=== PATIENT | male | born 1985 | race Caucasian/White ===

== ENCOUNTER 2019-03-07 12:08 | Day surgery (SDC) | payer SELFPAY ==
[~2019-03-07] VITALS: Ht 182.9 cm; Wt 120.5 kg
[~2019-03-07 12:08] MED LIST: ABIL15TA; AMBI5TAB; ASPI81TA83; CELE40TA; DEPA500T2; INVE6TAB3; LISI10TA4; NORV5TAB
[2019-03-07] MEDS ORDERED: LISI-538 PO (12:16)
[2019-03-07] MEDS ORDERED: PARO20TA3 PO (12:16)
[2019-03-07] MEDS ORDERED: NS 1,000 ML IV ONE (12:45)
[2019-03-07 12:56] LABS: BASO % 0.3 % (0.0-1.0); EOS # 0.1 10^3/uL (0.0-0.50); EOS % 0.6 % (0.0-3.0); HEMATOCRIT 48.9 % (42.0-52.0); HEMOGLOBIN 15.9 g/dl (13.5-17.5); LYMPH # 1.6 10^3/uL (1.5-4.5); LYMPH % 15.2 % (24.0-44.0); MEAN CORPUSCULAR HEMOGLOBIN 28.7 pg (27.0-33.0); MEAN CORPUSCULAR HGB CONC 32.5 g/dl (32.0-36.5); MEAN CORPUSCULAR VOLUME 88.3 fl (80.0-96.0); MONO # 0.8 10^3/uL (0.0-0.8); MONO % 7.3 % (0.0-5.0); NEUTROPHILS # 8.2 10^3/uL (1.8-7.7); PLATELET COUNT, AUTOMATED 250 10^3/uL (150-450); RED BLOOD COUNT 5.54 10^6/uL (4.30-6.10); WHITE BLOOD COUNT 10.8 10^3/uL (4.0-10.0)
[2019-03-07 13:28] LABS: ALBUMIN 4.2 GM/DL (3.2-5.2); ALT/SGPT 35 U/L (12-78); BILIRUBIN,DIRECT 0.2 MG/DL (0.0-0.2); BILIRUBIN,TOTAL 0.7 MG/DL (0.2-1.0); BLOOD UREA NITROGEN 16 MG/DL (7-18); CALCIUM LEVEL 9.7 MG/DL (8.5-10.1); CARBON DIOXIDE LEVEL 26 MEQ/L (21-32); CHLORIDE LEVEL 103 MEQ/L (98-107); CREATININE FOR GFR 1.04 MG/DL (0.70-1.30); GLOMERULAR FILTRATION RATE > 60.0 (>60); GLUCOSE, FASTING 92 MG/DL (70-100); LIPASE 152 U/L (73-393); POTASSIUM SERUM 4.2 MEQ/L (3.5-5.1); SODIUM LEVEL 137 MEQ/L (136-145); TOTAL PROTEIN 8.1 GM/DL (6.4-8.2)
[2019-03-07] MEDS ORDERED: ISOVUE-370 76% 100ML VIAL (Q9967) As Ordered ONE (14:11)
[2019-03-07] MEDS ORDERED: PIPERACILLIN/TAZOBACTAM SOD 3.375 GM in D5W MINI-BAG PLUS 50 ML IV ONE (15:15)
[2019-03-07] MEDS ORDERED: BUPIVACAINE/EPIN 0.25% 30 ML VIAL As Ordered ONE (16:10)
[2019-03-07] MEDS ORDERED: PROPOFOL 200 MG/20 ML VIAL As Ordered ONE (16:38)
[2019-03-07] MEDS ORDERED: LIDOCAINE 2% INJ 100 MG/5 ML SDV (FOR ANES.) As Ordered ONE (16:38)
[2019-03-07] MEDS ORDERED: ROCURONIUM BROMIDE 50 MG/5 ML VIAL As Ordered ONE ×3 (16:39→17:47)
[2019-03-07] MEDS ORDERED: ONDANSETRON 4MG/2ML VIAL (J2405) As Ordered ONE (16:43)
[2019-03-07] MEDS ORDERED: dexameTHASONE 4 MG/ML 1ML VIAL (J1100) As Ordered ONE ×2 (16:43→17:14)
[2019-03-07] MEDS ORDERED: MIDAZOLAM INJ 2 MG/2 ML VIAL (J2250) As Ordered ONE (16:52)
[2019-03-07] MEDS ORDERED: fentaNYL 250 MCG/5 ML INJECTION (J3010) As Ordered ONE (16:52)
--- NOTE | 2019-03-07 17:20 | REP ---
CT ABDOMEN AND PELVIS WITH IV CONTRAST: TECHNIQUE: Axial contrast enhanced images from the lung bases to the pubic symphysis using 100 mL Isovue 370 intravenous contrast material with multiplanar reformations. Visualized lung bases are clear. The liver demonstrates diffuse fatty infiltration. The gallbladder is mildly distended and grossly unremarkable, with no evidence of biliary dilatation. The spleen is normal in size with no instrinsic abnormality. The adrenal glands are normal. The pancreas demonstrates no mass. The kidneys are unremarkable with no hydronephrosis. There is no abdominal aortic aneurysm. There is no significant lymphadenopathy. There is no free air or free fluid. There is dilatation and thickening of the appendix with periappendiceal fat stranding consistent with appendicitis. There is no abscess. There is other area of bowel thickening. The urinary bladder is mildly distended and grossly unremarkable. There are small inguinal hernias containing fat. IMPRESSION: Findings consistent with appendicitis. No free air, abscess or free fluid. Electronically Signed by Vahid Fuentes MD 03/08/2019 07:53 A
[2019-03-07] MEDS ORDERED: ACETAMINOPHEN 1000MG 100ML IV BTL (OFIRMEV) (J0131 PER 10MG) As Ordered ONE (17:28)
[2019-03-07] MEDS ORDERED: SUGAMMADEX SODIUM 500 MG/5 ML VIAL (BRIDION) As Ordered ONE (17:50)
[2019-03-07] MEDS ORDERED: fentaNYL 100 MCG/2 ML INJECTION (J3010) As Ordered ONE ×3 (17:56→18:44)
[2019-03-07] MEDS ORDERED: KETOROLAC 60 MG/2 ML VIAL (J1885) As Ordered ONE (17:59)
[2019-03-07] MEDS ORDERED: NORCO, ANEXSIA 5/325MG TABLET (HYDROcodone/ACETAMINOPHEN) PO PRN ×2 (18:30)
[2019-03-07] MEDS ORDERED: MORPHINE 4 MG/ML 1ML VIAL/SYRINGE (J2270) IV PRN (18:30)
[2019-03-07] MEDS ORDERED: ONDANSETRON 4MG/2ML VIAL (J2405) IV PRN ×2 (18:30→19:00)
[2019-03-07] MEDS ORDERED: PERCOCET 5MG/325MG TAB As Ordered ONE (18:45)
[2019-03-07] MEDS: fentaNYL 100 MCG/2 ML INJECTION (J3010) IV PRN ×2 (18:47→18:52)
[2019-03-07] MEDS ORDERED: KETOROLAC 30 MG/ML VIAL (J1885) IV PRN (19:00)
[2019-03-07] MEDS ORDERED: LR 1,000 ML IV SCH (19:00)
[2019-03-07] MEDS ORDERED: PERCOCET 5MG/325MG TAB PO PRN (19:00)
[2019-03-07] MEDS ORDERED: METOCLOPRAMIDE INJ 10MG/2ML VIAL (J2765) IV PRN (19:00)
[2019-03-07 19:45] VITALS: BP 128/82
[2019-03-07] MEDS: PIPERACILLIN/TAZOBACTAM SOD 3.375 GM in D5W MINI-BAG PLUS 50 ML IV SCH (19:58)
[2019-03-07] MEDS: LR 1,000 ML IV SCH (19:58)
[2019-03-07 20:15] VITALS: BP 134/89
[2019-03-07 21:15] VITALS: BP 124/84
[2019-03-07 22:03] VITALS: O2SAT 95
[2019-03-07 22:15] VITALS: BP 125/75
[2019-03-07 23:00] VITALS: BP 123/82
[2019-03-08 00:15] VITALS: BP 120/78
[2019-03-08] MEDS: KETOROLAC 30 MG/ML VIAL (J1885) IV SCH ×2 (01:05→06:39)
[2019-03-08] MEDS: LR 1,000 ML IV SCH (02:12)
[2019-03-08] MEDS: PIPERACILLIN/TAZOBACTAM SOD 3.375 GM in D5W MINI-BAG PLUS 50 ML IV SCH ×2 (02:12→08:28)
[2019-03-08 04:15] VITALS: BP 117/78
[2019-03-08 08:00] VITALS: BP 154/84
--- NOTE | 2019-04-03 10:20 | RO ---
DATE OF PROCEDURE: 03/07/2019 PREOPERATIVE DIAGNOSIS: Acute appendicitis. POSTOPERATIVE DIAGNOSIS: Acute appendicitis. PROCEDURE: Laparoscopic appendectomy. SURGEON: Delano Rondon MD ASSISTANT [employer]OL[employer] PROFESSIONAL: ANESTHESIA: General endotracheal anesthesia. ESTIMATED BLOOD LOSS (EBL): Minimal. FLUIDS: Crystalloid. BRIEF PROCEDURE SUMMARY: The patient was brought to the operating room and was given general anesthesia. After adequate anesthesia and preoperative antibiotics were given, the patient was prepped and draped in the usual sterile fashion. Next, a supraumbilical incision was made with skin knife. Blunt dissection was carried down to fascia. Fascia was entered with a Veress needle, insufflated to 15 mm of pressure. A dilating 12 mm trocar was placed at this time and under direct visualization a suprapubic and left lower quadrant 5 mm trocar was placed. Next, the right lower quadrant was evaluated and indeed a very inflamed appendix was appreciated, and eventually after mobilization of the appendix off the pelvic sidewall and off the small bowel with some minimal blunt dissection as well as the Harmonic scalpel, the mesentery of the appendix was taken with Harmonic scalpel all the way to the base of the cecum. The cecal wall could be appreciated nicely at this point and the PEE stapler was used to transect the base of the appendix, placed in an EndoCatch bag and brought out through the umbilicus. The right lower quadrant was copiously irrigated until clear. All trocars removed under direct visualization and #0 Vicryl was used close the fascia at the umbilicus, #4-0 Vicryl was used close the incisions. Steri-Strips and a dry sterile dressing was applied. The patient was awakened, extubated, brought to the recovery room awake, alert, hemodynamically stable. Sponge and needle counts correct times two.
== END 2019-03-08 10:30 | disposition home or self-care (01) ==
LOC: M ED 12:08 → M SDC 12:09 → M MS5PR 19:35 → M SDC 03-08 10:30
PROVIDERS: ATTEND Surgery
DX: K35.80 Unspecified acute appendicitis (principal); I10 Essential (primary) hypertension; E66.9 Obesity, unspecified; F41.9 Anxiety disorder, unspecified; Z72.0 Tobacco use
CPT/HCPCS: 44970; 74177; 80048; 80076; 83690; 85025; 88302; 96360; 96361; 96365; 96366; 96375; 99284; J0131; J1100; J1885; J2250; J2405; J2543; J3010; Q9967

== ENCOUNTER → 2023-12-23 | Outpatient (REF) | payer OTHER ==
[~2023-12-23] MED LIST changes: +LISI20TA33 PO; +PARO20TA3 PO
== END ==
LOC: M SMT 13:25
PROVIDERS: ATTEND Urology
DX: Z30.2 Encounter for sterilization (principal)

== ENCOUNTER → 2024-03-06 | Outpatient (REF) | payer OTHER ==
[2024-03-06 11:36] LABS: SEMEN APPEARANCE OPAQUE (OPAQUE); SEMEN VISCOSITY LIQUID (LIQUID); SEMEN VOLUME 2.1 ml (2.0-5.0); SEMEN pH 8.5 (7.0-8.0); WBC CONCENTRATION <=1 M/ml (<=1 M/ml)
== END ==
LOC: M SMT 10:27
PROVIDERS: ATTEND Urology
DX: Z30.8 Encounter for other contraceptive management (principal)

== ENCOUNTER 2024-06-27 11:06 | Emergency (ER) | payer OTHER ==
[~2024-06-27] VITALS: Ht 180.3 cm; Wt 127.5 kg
[2024-06-27 11:18] VITALS: TEMP 97.8
[2024-06-27 13:54] LABS: BASO % 0.3 % (0.0-1.0); EOS % 0.1 % (0.0-3.0); HEMATOCRIT 49.3 % (42.0-52.0); HEMOGLOBIN 16.4 g/dl (13.5-17.5); LYMPH # 0.9 10^3/uL (1.5-5.0); LYMPH % 5.8 % (24.0-44.0); MEAN CORPUSCULAR HEMOGLOBIN 28.4 pg (27.0-33.0); MEAN CORPUSCULAR HGB CONC 33.3 g/dl (32.0-36.5); MEAN CORPUSCULAR VOLUME 85.4 fl (80.0-96.0); MONO # 0.2 10^3/uL (0.0-0.8); MONO % 1.3 % (2.0-8.0); NEUTROPHILS # 14.1 10^3/uL (1.5-8.5); NEUTROPHILS % 92.1 % (36.0-66.0); PLATELET COUNT, AUTOMATED 320 10^3/uL (150-450); RED BLOOD COUNT 5.77 10^6/uL (4.30-6.10); WHITE BLOOD COUNT 15.3 10^3/uL (4.0-10.0)
[2024-06-27 14:25] LABS: BLOOD UREA NITROGEN 17 MG/DL (9-23); CALCIUM LEVEL 10.2 MG/DL (8.5-10.1); CARBON DIOXIDE LEVEL 26 MMOL/L (20-31); CHLORIDE LEVEL 104 MMOL/L (98-107); CREATININE FOR GFR 1.08 MG/DL (0.70-1.30); GLOMERULAR FILTRATION RATE > 60.0 (>60); GLUCOSE, FASTING 118 MG/DL (60-100); POTASSIUM SERUM 5.1 MMOL/L (3.5-5.1); SODIUM LEVEL 137 MMOL/L (136-145)
[2024-06-27 14:27] LABS: THYROID STIMULATING HORMONE 0.747 uIU/ML (0.55-4.78)
[2024-06-27 15:25] LABS: CK-MB VALUE MASS < 1.0 NG/ML (<3.6)
[2024-06-27 15:26] LABS: CPK CREATINE PHOSPHOKINASE 112 U/L (46-171); MB/CK RELATIVE INDEX 0.89 (< OR =4)
[2024-06-27] MEDS: LIDOCAINE 1% MDV 20ML VIAL SC ONE (15:35)
[2024-06-27 16:00] VITALS: BP 155/79; O2SAT 96
== END 2024-06-27 16:25 | disposition home or self-care (01) ==
LOC: M ED 11:06 → EDBD 11:06 → M ED 16:25
DX: R55 Syncope and collapse (principal); D72.829 Elevated white blood cell count, unspecified; S01.81XA Laceration without foreign body of other part of head, initial encounter; X58.XXXA Exposure to other specified factors, initial encounter; Y92.9 Unspecified place or not applicable; Y93.9 Activity, unspecified; Y99.9 Unspecified external cause status; I10 Essential (primary) hypertension; J30.81 Allergic rhinitis due to animal (cat) (dog) hair and dander; Z79.899 Other long term (current) drug therapy

== ENCOUNTER 2024-07-04 11:32 | Emergency (ER) | payer OTHER ==
[~2024-07-04] VITALS: Ht 180.3 cm; Wt 127.2 kg
[2024-07-04 12:45] VITALS: BP 162/98; TEMP 98; O2SAT 96
== END 2024-07-04 12:48 | disposition home or self-care (01) ==
LOC: M ED 11:32
DX: Z48.02 Encounter for removal of sutures (principal); I10 Essential (primary) hypertension; F41.9 Anxiety disorder, unspecified; J30.81 Allergic rhinitis due to animal (cat) (dog) hair and dander; Z79.899 Other long term (current) drug therapy

== ENCOUNTER → 2025-04-03 | Outpatient (REF) | payer OTHER ==
[2025-04-03 13:56] LABS: ALT/SGPT 35 U/L (7.0-40); AST/SGOT 20 U/L (<34); CALCIUM LEVEL 9.3 MG/DL (8.5-10.1); CARBON DIOXIDE LEVEL 26 MMOL/L (20-31); CHLORIDE LEVEL 106 MMOL/L (98-107); CREATININE FOR GFR 1.03 MG/DL (0.70-1.30); GLOMERULAR FILTRATION RATE > 90.0 (>60); POTASSIUM SERUM 5.0 MMOL/L (3.5-5.1); SODIUM LEVEL 144 MMOL/L (136-145)
[2025-04-03 14:17] LABS: ESTIMATED AVERAGE GLUCOSE 131.0 MG/DL (60-110)
== END ==
LOC: M SFHCADAM 10:14
PROVIDERS: ATTEND Family Medicine
DX: R73.01 Impaired fasting glucose (principal)